=== PATIENT | male | born 1985 | race Caucasian/White ===

== ENCOUNTER → 2020-06-05 | Outpatient (CLI) | payer OTHER, SELFPAY ==
[2020-06-08 01:13] LABS: Covid Inpatient test code RECEIVED
== END | disposition home or self-care (01) ==
LOC: LABSPEC 13:55
PROVIDERS: PCP Family Medicine; Referring Provider Family Medicine; Visit Provider Family Medicine
DX: R53.83 Other fatigue (principal)
CPT/HCPCS: 87635; U0003

== ENCOUNTER 2024-01-27 09:34 | Emergency (ER) | payer OTHER, SELFPAY ==
[2024-01-27 09:34] VITALS: BP 147/89; PULSE 104; RESP 16; TEMP 36.1; O2SAT 97; BMI 27.8
--- NOTE | 2024-01-27 09:59 | EX.ED.DYSGE1 ---
HPI History of Present Illness Chief Complaint: Dizziness Informant: patient Onset/Context/Timing Onset: Today Narrative Narrative: Patient presents secondary to dizziness and lightheadedness this morning. He states that he felt a tingling sensation over the top of his head and in his cheeks, felt lightheaded and dizzy. He does report that he has felt extremely fatigued the last couple of days and just wants to sleep all the time. He has not had fever or chills. He has not had cough, vomiting, or diarrhea. [facility] Medical History History of staph infection Home Medications NK 01/27/24 [History Last Taken Unknown] Allergy/AdvReac Type Severity Reaction Status Date / Time No Known Allergies Allergy Verified 01/27/24 09:36 Surgical History No pertinent past surgical history Social History Smoking Status: Current every day smoker tobacco type: cigarettes alcohol intake: current substance use type: does not use ROS ROS ED Constitutional Constitutional ED: Denies chills or fever(s) ENT ENT ED: Denies rhinorrhea or sore throat Cardiovascular Cardiovascular: Denies chest pain or palpitations Respiratory/Chest Respiratory/Chest: Denies cough or dyspnea Gastrointestinal Gastrointestinal: Denies abdominal pain, diarrhea, nausea or vomiting Genitourinary Genitourinary ED: Denies dysuria Musculoskeletal Musculoskeletal: Denies back pain or extremity pain Integumentary Denies Abrasions or rash Neurologic Neurologic: Reports weakness; Denies headache(s) Psychiatric Psychiatric: Denies anxiety or depression Allergic/Immunologic Allergic/Immunologic ED: Denies lip swelling or urticaria EXAM Physical Exam Const Vital Signs: 01/27/24 09:34 01/27/24 09:42 01/27/24 11:34 Temperature 96.9 F L Temperature Source Temporal Pulse Rate 104 H 67 Respiratory Rate 16 16 Respiratory Effort Normal Respiratory Pattern Normal Blood Pressure 147/89 H 138/83 H Blood Pressure Mean 108 101 Pulse Ox 97 97 Oxygen Delivery Method Room Air Room Air Positive well nourished and well developed General Appearance ED: well developed HEENT Reports moist mucous membranes Eyes EOMs intact bilaterally Neck no lymphadenopathy Chest Wall inspection of chest normal and palpation of chest normal Resp normal respiratory effort and clear to auscultation bilaterally Cardio regular rate and regular rhythm GI non-tender Palpation: soft Extremity normal to inspection Neuro oriented x3 and no sensory deficits noted Motor Exam: strength 5/5 throughout Psych mental status grossly normal Skin no rashes or lesions noted MDM MDM MDM Narrative Medical decision making narrative: Patient placed on cardiac nurse specialist. IV line established. EKG obtained to evaluate for cardiac arrhythmia/ischemia. Labwork obtained to evaluate for leukocytosis, anemia, and electrolyte derangement. Patient given liter IV fluid bolus. He was initially tachycardic on arrival to 104, however heart rate was 80 at the time of my exam. Patient reports swab for COVID and influenza was negative at urgent care. History & Record Review Discussion w/independent historian: Patient Lab Data Attestation: I reviewed the patient's lab results. Labs: Laboratory Results - last 24 hr 01/27/24 01/27/24 01/27/24 10:33 10:48 11:05 WBC 5.8 RBC 5.09 Hgb 15.4 Hct 45.9 MCV 90.2 MCH 30.3 MCHC 33.6 RDW Std Deviation 41.0 RDW Coeff of Lisa 12.9 Plt Count 219 MPV 11.2 Immature Gran % (Auto) 0.500 Neut % (Auto) 57.9 Lymph % (Auto) 31.1 Crisp % (Auto) 7.7 Eos % (Auto) 2.1 Baso % (Auto) 0.7 Absolute Neuts (auto) 3.3 Absolute Lymphs (auto) 1.79 Nucleated RBC % 0 Sodium Cancelled Cancelled Potassium Cancelled Cancelled Chloride Cancelled Cancelled Carbon Dioxide Cancelled Cancelled Anion Gap Cancelled Cancelled BUN Cancelled Cancelled Creatinine Cancelled Cancelled Estim Creat Clear Calc Cancelled Cancelled Est GFR (MDRD) Af Amer Cancelled Cancelled Est GFR (MDRD) Non-Af Cancelled Cancelled BUN/Creatinine Ratio Cancelled Cancelled Glucose Cancelled Cancelled Calcium Cancelled Cancelled Urine Color Yellow Urine Clarity Clear Urine pH 7.0 Ur Specific [place] 1.010 Urine Protein Negative Urine Glucose (UA) Normal Urine Ketones Negative Urine Occult Blood Negative Urine Nitrite Negative Urine Bilirubin Negative Urine Urobilinogen Normal Ur Leukocyte Esterase Negative Urine RBC 0 SEEN Urine WBC 0 SEEN Ur Squamous Epith Cells 0-5 SEEN Urine Bacteria 0 SEEN Urine Mucus 0 SEEN 01/27/24 12:10 WBC RBC Hgb Hct MCV MCH MCHC RDW Std Deviation RDW Coeff of Lisa Plt Count MPV Immature Gran % (Auto) Neut % (Auto) Lymph % (Auto) Crisp % (Auto) Eos % (Auto) Baso % (Auto) Absolute Neuts (auto) Absolute Lymphs (auto) Nucleated RBC % Sodium 142 Potassium 4.0 Chloride 113 H Carbon Dioxide 25.0 Anion Gap 4 L BUN 12 Creatinine 0.83 Estim Creat Clear Calc 133.42 Est GFR (MDRD) Af Amer 133 Est GFR (MDRD) Non-Af 110 BUN/Creatinine Ratio 14.5 Glucose 94 Calcium 8.9 Urine Color Urine Clarity Urine pH Ur Specific [place] Urine Protein Urine Glucose (UA) Urine Ketones Urine Occult Blood Urine Nitrite Urine Bilirubin Urine Urobilinogen Ur Leukocyte Esterase Urine RBC Urine WBC Ur Squamous Epith Cells Urine Bacteria Urine Mucus EKG Initial EKG: Attestation: I personally reviewed and interpreted this EKG as follows: Interpretation: Sinus Rhythm (Sinus at 68 with no acute ischemia.) Treatment and Re-Evaluation :: CBC was normal white count 5.8 with a hemoglobin of 15.4. Differential unremarkable. Chemistry studies are normal with good renal function. Glucose is 94. Urinalysis reveals no evidence of acute infection and no ketones. On repeat evaluation patient states he feels much improved after IV fluids. He is tolerating p.o. without difficulty. He will continue supportive care at home. Return instructions were provided. Discharge Plan Triage Chief Complaint: Dizziness ED Provider: Lulu Adler Dx/Rx/DC Orders Clinical Impression: Dizziness Instructions: ED Dizziness, Uncertain Cause Prescriptions: No Action NK Primary Care Provider: Armaan Lawson Referrals: Armaan Lawson MD [Primary Care Provider] - 1 Week if not improving Disposition Disposition: Home, Self Care
--- NOTE | 2024-01-27 10:00 | ED.RN ---
no old ekg
[2024-01-27] MEDS: 0.9% Normal Saline (1000mL) 1,000 ML 1000 ML IV (10:46)
[2024-01-27 10:52] LABS: Bacteria 0 SEEN /hpf (None Seen); Mucous, Urine 0 SEEN /hpf (<or=2+); Red Blood Cells-Urine 0 SEEN /hpf (0-5); White Blood Cells 0 SEEN /hpf (0-5)
[2024-01-27 10:56] LABS: Color, Urine Yellow (Yellow); Glucose, Dipstick Normal (Normal); Ketone-Dipstick Negative (Negative); Leukocyte Esterase-Dipstick Negative /ul (Negative); Nitrite-Dipstick Negative (Negative); Occult Blood-Urine Negative /ul (Negative); Protein-Dipstick Negative (Negative); Urine Bilirubin Dipstick Negative (Negative); Urine Clarity Clear (Clear); Urine Urobilinogen Normal (Normal)
[2024-01-27 11:14] LABS: Squamous Epithelial Cells - UA 0-5 SEEN /hpf (0-5)
[2024-01-27 11:19] LABS: Absolute Lymphocyte Count 1.79 X10^3/uL (0.83-4.51); Absolute Neutrophil Count 3.3 X10^3/uL (2.0-7.7); Basophil# 0.04 X10^3/uL; Basophil% 0.7 % (0-1); Eosinophil# 0.12 X10^3/uL; Eosinophils% 2.1 % (0-5); Hematocrit 45.9 % (40-54); Hemoglobin 15.4 g/dL (13.0-16.5); Lymphocyte # 1.79 X10^3/ul (0.83-4.51); Lymphocyte % 31.1 % (19-41); Mean Corp Hgb Conc 33.6 g/dL (32-36); Mean Corpuscular Hgb 30.3 pg (27.0-32.0); Mean Corpuscular Volume 90.2 fL (80-94); Mean Platelet Vol. 11.2 fl (6.2-12.0); Monocyte# 0.44 X10^3/uL; Monocyte% 7.7 % (0-10); NRBC Flagged by Analyzer 0 % (0-5); Neutrophil # 3.33 X10^3/uL (2.7-7.7); Neutrophil % 57.9 % (47-70); Platelet Count 219 K/mm3 (150-450); RBC Distribution Width CV 12.9 % (11.6-14.6); Red Blood Count 5.09 M/mm3 (4.6-6.2); White Blood Count 5.8 K/mm3 (4.4-11.0)
[2024-01-27 11:34] VITALS: BP 138/83; PULSE 67; RESP 16; O2SAT 97
[2024-01-27 12:33] LABS: Anion Gap 4 (5-15); BUN 12 mg/dL (7-18); BUN/Creat Ratio 14.5 RATIO (10-20); Calcium,Total 8.9 mg/dL (8.5-10.1); Chloride 113 mmol/L (98-107); Creatinine, Serum 0.83 mg/dL (0.70-1.30); EST Glomerular Filtration Rate 110 mL/min (>60); Est Glom Filt Rate - Afr Amer 133 mL/min (>60); Estimated Creatinine Clearance 133.42 ml/min; Glucose 94 mg/dL (74-106); Sodium Level 142 mmol/L (136-145)
[2024-01-27 13:00] VITALS: BP 134/77; BP 137/74; PULSE 77; PULSE 78; RESP 16; RESP 24; TEMP 36.6; O2SAT 95; O2SAT 97
[2024-01-27 13:06] VITALS: BP 134/77; PULSE 77; RESP 16; TEMP 36.6; O2SAT 99
== END 2024-01-27 13:07 | disposition home or self-care (01) ==
PROVIDERS: Emergency Provider Emergency Medicine; PCP Family Medicine; Visit Provider Emergency Medicine
DX: R42 Dizziness and giddiness (principal); F17.210 Nicotine dependence, cigarettes, uncomplicated
CPT/HCPCS: 36415; 80048; 81001; 85025; 93005; 96360; 99283; J7030; A4216

== ENCOUNTER → 2024-01-31 | Outpatient (CLI) | payer OTHER, SELFPAY ==
[2024-01-31 10:12] LABS: Vitamin B12 416 pg/mL (211-911); Vitamin D,25 Hydroxy 22.2 ng/mL
[2024-01-31 13:45] LABS: AST(SGOT) 27 U/L (15-37); Alanine Aminotransfer ALT/SGPT 56 U/L (16-61); Albumin, Serum 4.1 g/dL (3.2-5.0); Alkaline Phosphatase 84 U/L (45-117); Bilirubin, Direct 0.19 mg/dL (0.00-0.30); Cholesterol 246 mg/dL (200); Globulin 3.5 g/dL (2.2-4.2); High Density Lipoprotein 45 mg/dL; Protein, Total 7.6 g/dL (6.4-8.2); Thyroid Stim Hormone (TSH) 1.68 uIU/mL (0.358-3.74); Triglycerides 125 mg/dL; Very Low Density Lipoprotein 25 mg/dL (5-40)
== END | disposition home or self-care (01) ==
LOC: MFPLAB 08:20
PROVIDERS: PCP Family Medicine; Visit Provider Family Medicine
DX: R42 Dizziness and giddiness (principal); Z13.220 Encounter for screening for lipoid disorders; Z78.9 Other specified health status
CPT/HCPCS: 36415; 80061; 80076; 82306; 82607; 84443